=== PATIENT | male | born 1950 | race Caucasian/White ===

== ENCOUNTER → 2017-10-16 | Day surgery (SDC) | payer MEDICARE ==
[2017-10-14 08:28] LABS: BASOPHILS % 0.3 % (0.0-1.0); EOSINOPHILS # (AUTO) 0.1 (0.0-0.4); EOSINOPHILS % 1.1 % (0.0-6.0); HEMATOCRIT 43.5 % (38.2-49.6); HEMOGLOBIN 14.6 g/dL (14.0-18.0); LYMPHOCYTES # (AUTO) 1.7 (1.0-3.2); LYMPHOCYTES % 27.7 % (18.0-39.1); MEAN CORPUSCULAR HEMOGLOBIN 32.4 pg (28-32); MEAN CORPUSCULAR HGB CONC 33.6 g/dL (31-35); MEAN CORPUSCULAR VOLUME 96.7 fL (81-99); MONOCYTES # (AUTO) 0.7 (0.2-0.8); MONOCYTES % 10.8 % (4.4-11.3); NEUTROPHILS # (AUTO) 3.7 (2.1-6.9); NEUTROPHILS % 59.9 % (38.7-80.0); PLATELET COUNT 173 x10e3/uL (140-360); RED CELL DISTRIBUTION WIDTH 12.6 % (11.7-14.4)
[2017-10-14 08:50] LABS: ALANINE AMINOTRANSFERASE 13 IU/L (0-55); ALBUMIN/GLOBULIN RATIO 1.2 (0.8-2.0); ALKALINE PHOSPHATASE 60 IU/L (40-150); ANION GAP 13.2 mmol/L (8-16); BLOOD UREA NITROGEN 15 mg/dL (7-26); BUN/CREATININE RATIO 15 (6-25); CALCIUM 10.1 mg/dL (8.4-10.2); CARBON DIOXIDE 26 mmol/L (22-29); CHLORIDE 110 mmol/L (98-107); CREATININE, SERUM 0.98 mg/dL (0.72-1.25); EST GLOMERULAR FILTRATION RATE > 60 ML/MIN (60-); GLUCOSE 97 mg/dL (74-118); POTASSIUM 5.2 mmol/L (3.5-5.1); SODIUM 144 mmol/L (136-145)
--- NOTE | 2017-10-14 09:19 | Diagnostic Imaging Report ---
PROCEDURE: X-RAY CHEST, TWO VIEWS COMPARISON: None. INDICATIONS: PRE OPERATIVE CHEST X-RAY FOR STONES FINDINGS: LUNGS: No consolidations or edema. PLEURA: No effusions or pneumothorax. HEART \T\ MEDIASTINUM: The heart is within normal size-limits. BONES \T\ SOFT TISSUES: No acute findings. Degenerative changes of the spine. CONCLUSION: No acute thoracic abnormality. Sergo Jones D.O. Dictated by: Sergo Jones D.O. on 10/14/2017 at 9:23 Electronically approved by: Sergo Jones D.O. on 10/14/2017 at 9:23
[~2017-10-16] MED LIST: BELLADONNA/OPIUM 30 MG SUPP RC ONE; CEFTRIAXONE SOD 1 GM VIAL ONE; DEXAMETHASONE SOD PHOS INJ 4 MG/ML VIAL ONE; FENTANYL CITRATE/PF 100MCG/2 ML INJ ONE; FLOMAX0.4 MG PO; IOPAMIDOL 610MG/1ML 300 MG/ML VIAL IV ONE; LIDOCAINE HCL 2% LOCAL INJ 5 ML SDV VIAL INJ ONE; METOCLOPRAMIDE HCL 10 MG/2ML VIAL ONE; MIDAZOLAM HCL 2 MG/2 ML VIAL ONE; ONDANSETRON HCL INJ 2 MG/ML VIAL ONE; PANTOPRAZOLE PO; PROPOFOL IV EMULSION 10 MG/ML 20 ML VIAL ONE; RANITIDINE PO; SEVOFLURANE INHAL SOLN 250 ML PEN BTL ONE
--- NOTE | 2017-10-16 08:13 | Diagnostic Imaging Report ---
PROCEDURE:X-RAY ABDOMEN - KUB COMPARISON:None. INDICATIONS:PREOPERATIVE XRAY FOR KIDNEY STONE SURGERY FINDINGS: Adjacent 5 and 6 mm calcifications project over the lower pole of the left renal shadow. No additional calcifications project over the renal shadows or expected ureteral courses. Multiple right sided pelvic phleboliths. Bowel gas pattern is nonobstructive. Regional skeletal structures are intact. CONCLUSION: Suspected 5 and 6 mm left lower pole renal calculi. Dictated by: Db Devlin M.D. on 10/16/2017 at 8:17 Electronically approved by: Db Devlin M.D. on 10/16/2017 at 8:17
--- NOTE | 2017-11-30 04:22 | Operative Report ---
DATE OF PROCEDURE: October 16, 2017 PREOPERATIVE DIAGNOSES 1. Right nephrolithiasis. 2. Right ureterolithiasis. 3. Renal colic. 4. Hydronephrosis due to stone. POSTOPERATIVE DIAGNOSES 1. Right nephrolithiasis. 2. Right ureterolithiasis. 3. Renal colic. 4. Hydronephrosis due to stone. OPERATIONS PERFORMED: Note, these were all staged procedures as part of a multistage, multistep process of managing patient's urolithiasis. 1. Right extracorporeal shockwave lithotripsy (separate procedure performed to lithotripsy the 4-mm mid caliceal stone located in the right-hand side). 2. Cystourethroscopy with bilateral ureteral catheterization and retrograde ureteropyelography. (separate procedure performed for the renal colic). 3. Interpretation of retrograde ureteropyelography. 4. Supervision of fluoroscopy (no radiologist present). 5. Right ureteroscopy with stone manipulation and extraction (separate procedure performed for right ureterolithiasis). 6. Urological services for supervision and interpretation of ureteroscopy. 7. Cystourethroscopy with insertion of right indwelling ureteral stent (separate procedure performed for the diagnosis of the hydronephrosis). ANESTHESIA: General. COMPLICATIONS: None. CLINICAL SUMMARY: Marvin Sands is a 67-year-old man with right nephrolithiasis. He was brought for the above procedures. He is aware of the risks of bleeding, infection, injury to adjacent structures, need for additional procedures, and elected to proceed. He also has some pains; therefore, we plan to evaluate his pains with cystoscopy and retrograde. OPERATIVE PROCEDURE IN DETAIL: Informed consent verified. Marvin Sands was properly identified, taken to the operating room, placed on the lithotripsy table in supine position. Anesthesia was uneventfully begun. The patient's right nephrolithiasis was localized with biplanar fluoroscopy. A total of 3000 shocks were delivered with fragmentation noted. Patient was then carefully and gently repositioned in the dorsal lithotomy position with all pressure points well padded. His genitalia were prepared and draped in usual sterile fashion. The 22.5-Moldovan cystoscope sheath with visual obturator in place was atraumatically inserted per patient's urethra. It was guided down the unremarkable distal urethra through the normal sphincteric region through the prostate bed, was significant for bilobar prostatic hypertrophy with visual obstruction. Panendoscopy of urinary bladder revealed mild trabeculations, but no tumors, no stones, no true diverticula. Normally positioned and configured ureteral orifices were identified. The ureteral catheter was used to cannulate each ureter and retrograde ureteropyelography was performed. A guidewire was then placed into the right ureter and guided to level of patient's kidney. Semirigid ureteroscopy was then performed. The ureteroscope was inserted under direct vision, guided alongside the guidewire up into the right ureter. We identified a stone. The stone was grasped with a basket and atraumatically extracted. With cystoscopic fluoroscopic guidance, a right-sided indwelling ureteral stent was then placed. It was coiled in patient's kidney, as well as patient's bladder. The retaining suture was cut short. Interpretation of retrograde ureteropyelography: Contrast was instilled in retrograde fashion bilaterally. The left side was unremarkable. There were no tumors. There were no diverticula. Unobstructed drainage was observed. The right side was significant for hydroureteronephrosis down to the level of patient's ureteral stone. The stent was in good position, coiled in patient's kidney, as well as patient's bladder. At the end of the case, there were filling defects in the midpole gildardo corresponding to the region where we performed lithotripsy. The patient's bladder was drained. Cystoscope was withdrawn. A belladonna and opium suppository was placed revealing a 40-g prostate that was smooth, nonfluctuant without any nodules. The patient was then uneventfully reversed from anesthesia and taken to recovery room in stable condition. There were no complications to the procedure. He tolerated the procedure well. Explicit postop instructions were given. Will follow the patient up by returning him to the operating room to perform cystoscopy, removal of his right stent, right ureteroscopy. Job#: [id number] CQ
== END | disposition home or self-care (01) ==
LOC: OR 07:17
PROVIDERS: ATTEND Urology
DX: N13.2 Hydronephrosis with renal and ureteral calculous obstruction (principal); N32.89 Other specified disorders of bladder; N40.1 Benign prostatic hyperplasia with lower urinary tract symptoms; R35.1 Nocturia; N50.0 Atrophy of testis; K21.9 Gastro-esophageal reflux disease without esophagitis; Z01.810 Encounter for preprocedural cardiovascular examination; Z01.812 Encounter for preprocedural laboratory examination; Z01.818 Encounter for other preprocedural examination; Z84.1 Family history of disorders of kidney and ureter
CPT/HCPCS: 36415; 50590; 52332; 71046; 74018; 80053; 83970; 84550; 85025; 88300; 93005; C1758; C2617; J0696; J1100; J2001; J2250; J2405; J2765; Q9967

== ENCOUNTER → 2017-11-18 | Outpatient (CLI) | payer MEDICARE ==
[~2017-11-18] MED LIST changes: -BELLADONNA/OPIUM 30 MG SUPP RC ONE; -CEFTRIAXONE SOD 1 GM VIAL ONE; -DEXAMETHASONE SOD PHOS INJ 4 MG/ML VIAL ONE; -FENTANYL CITRATE/PF 100MCG/2 ML INJ ONE; -IOPAMIDOL 610MG/1ML 300 MG/ML VIAL IV ONE; -LIDOCAINE HCL 2% LOCAL INJ 5 ML SDV VIAL INJ ONE; -METOCLOPRAMIDE HCL 10 MG/2ML VIAL ONE; -MIDAZOLAM HCL 2 MG/2 ML VIAL ONE; -ONDANSETRON HCL INJ 2 MG/ML VIAL ONE; -PROPOFOL IV EMULSION 10 MG/ML 20 ML VIAL ONE; -SEVOFLURANE INHAL SOLN 250 ML PEN BTL ONE
--- NOTE | 2017-11-18 11:02 | Diagnostic Imaging Report ---
PROCEDURE:X-RAY ABDOMEN - KUB COMPARISON:[facility], DX, ABDOMEN-1VIEW (KUB), 10/16/2017, 7:52. INDICATIONS:CALCULUS OF KIDNEY FINDINGS: There is a right double-J ureteral stent present. Stones previously described overlying the left lower pole are not conclusively visualized due to overlying bowel gas. There are no dilated loops of bowel to suggest obstruction. There are no masses or abnormal calcifications. Right pelvic calcifications appear to represent phleboliths. There is no evidence of free air. No acute osseous abnormalities are present. CONCLUSION: No acute abdominal abnormality. Sergo Jones D.O. Dictated by: Sergo Jones D.O. on 11/18/2017 at 11:07 Electronically approved by: Sergo Jones D.O. on 11/18/2017 at 11:07
== END ==
LOC: RAD 07:42
PROVIDERS: ATTEND Urology
DX: N20.0 Calculus of kidney (principal)
CPT/HCPCS: 74018

== ENCOUNTER → 2017-11-27 | Day surgery (SDC) | payer MEDICARE ==
[2017-11-25 14:16] LABS: BASOPHILS % 0.3 % (0.0-1.0); EOSINOPHILS % 0.5 % (0.0-6.0); HEMATOCRIT 42.2 % (38.2-49.6); HEMOGLOBIN 14.3 g/dL (14.0-18.0); LYMPHOCYTES # (AUTO) 1.5 (1.0-3.2); LYMPHOCYTES % 25.1 % (18.0-39.1); MEAN CORPUSCULAR HEMOGLOBIN 32.8 pg (28-32); MEAN CORPUSCULAR HGB CONC 33.9 g/dL (31-35); MEAN CORPUSCULAR VOLUME 96.8 fL (81-99); MONOCYTES # (AUTO) 0.5 (0.2-0.8); MONOCYTES % 8.5 % (4.4-11.3); NEUTROPHILS % 65.4 % (38.7-80.0); PLATELET COUNT 185 x10e3/uL (140-360); RED BLOOD COUNT 4.36 x10e6/uL (4.3-5.7); RED CELL DISTRIBUTION WIDTH 12.6 % (11.7-14.4)
[~2017-11-27] MED LIST changes: +CEFTRIAXONE SOD 1 GM VIAL ONE; +DESFLURANE 240 ML BTL INH ONE; +DEXAMETHASONE SOD PHOS INJ 4 MG/ML VIAL ONE; +EYE LUBRICANT OPTH OINT 3.5GM TUBE OP ONE; +FENTANYL CITRATE/PF 100MCG/2 ML INJ ONE; +IOPAMIDOL 300MG/ML 50ML INFUS..BTL IV ONE; +LIDOCAINE HCL 2% LOCAL INJ 5 ML SDV VIAL INJ ONE; +MIDAZOLAM HCL 2 MG/2 ML VIAL ONE; +ONDANSETRON HCL INJ 2 MG/ML VIAL ONE; +PROPOFOL IV EMULSION 10 MG/ML 20 ML VIAL ONE
--- NOTE | 2017-11-27 12:41 | Diagnostic Imaging Report ---
Exam: Abdominal film Clinical History: Stent, stones preop surgery for kidney stone Comparison: KUB DISCUSSION: Frontal view of the abdomen shows a nonobstructive bowel gas pattern with mild amount of retained stool.There are no dilated, air-filled loops of bowel. Stable right double-J internal ureteral stent in place. 3-4 mm radiopaque density projects over the inferior aspect of the right renal shadow. No calcifications project over the left renal shadow, expected course of the ureters or bladder. Stable pelvic phleboliths. No acute bony abnormalities. IMPRESSION: 1. Stable right double-J internal ureteral stent in place. 2. 3-4 mm radiopaque density projecting in the lower pole of the right renal shadow likely represents a nonobstructing calculus. The staff physician below has personally reviewed this exam on the date of dictation. Signed by: Dr. Les Jean-Baptiste M.D. on 11/27/2017 12:37 PM
--- NOTE | 2018-01-19 14:58 | Operative Report ---
DATE OF PROCEDURE: November 27, 2017 PREOPERATIVE DIAGNOSES: 1. Right nephrolithiasis. 2. Right indwelling ureteral stent. POSTOPERATIVE DIAGNOSES: 1. Right nephrolithiasis. 1. Right indwelling ureteral stent. PROCEDURES PERFORMED: Note: These are all staged procedures as part of a multistage, multistep process of managing the patient's urolithiasis. 1. Cystourethroscopy with complicated removal of right indwelling ureteral stent (separate procedure performed for the diagnosis of stent, done with separate scope). 2. Right ureteroscopy with Holmium laser lithotripsy and stone extraction (separate procedure performed for the nephrolithiasis, done with separate scope.) 3. Radiological services for supervision and interpretation of ureteroscopy. 4. Interpretation of retrograde ureterography. 5. Supervision of fluoroscopy. No radiologist present. ANESTHESIA: General. COMPLICATIONS: None. CLINICAL SUMMARY: Marvin Sands is a 67-year-old man who underwent previous stone management. He has a stent in place. He is brought to the operating room in hopes of rendering him stent-free and stone-free. He is aware of the risks of bleeding, infection, injury to adjacent structures, need for additional procedures and elected to proceed. OPERATIVE PROCEDURE IN DETAIL: Informed consent was verified. Marvin Sands was properly identified, taken to the operating room and placed on the cystoscopy table in supine position, and anesthesia was uneventfully begun. The patient was then carefully and gently repositioned in the dorsal lithotomy position with all pressure points well padded. His genitalia were prepared and draped in the usual sterile fashion. The 22.5-Macedonian cystoscope sheath with the visual obturator in place was atraumatically inserted in the patient's urethra. It was guided down the unremarkable urethra past a prostatic bed that was significant for obstructive BPH with kissing lateral lobes. No median lobe was noted. We entered the patient's bladder where there was a stent emerging from the right ureteral orifice. A guidewire was then placed alongside the stent and guided to the level of the patient's kidney. The stent was then grasped, completely removed and discarded. A semi-rigid ureteroscope was then placed alongside the guidewire and guided into the distal right ureter. No stones were noted, and there was no injury, there were no tumors in the part that was visualized. A secondary guidewire was left in place. The flexile ureteroscope was then brought up over the guidewire and guided to the level of the patient's kidney. Panendoscopy revealed Tim's plaques. It also revealed a stone within the kidney. This stone was lasered to break it up into smaller fragments, and the largest of the fragments were extracted with a Nitinol tipless basket. Only very fine sand remained. This sand should be passable. The ureter was examined as we exited and exhibited no residual stones and no strictures and no tumors. The patient's bladder was then drained. The cystoscope was withdrawn. The direct examination revealed a 40 g prostate that was smooth, nonflexible and without any nodules, and the patient was uneventfully reversed from anesthesia and taken to the recovery room in stable condition. There were no complications of the procedure. He tolerated the procedure well. Plans will be to follow the patient up at the office, at which point in time we will assess his BPH with uroflowmetry and bladder ultrasonography. Interpretation of retrograde ureteropyelography: Contrast was instilled in a retrograde fashion on the right-hand side. There were no tumors present. There was mild fullness noted. The ureter was unremarkable. Unobstructed drainage was observed fluoroscopically. Job#: [id number] EV cc:PAUL JACOBS MD
== END | disposition home or self-care (01) ==
LOC: OR 11:30
PROVIDERS: ATTEND Urology
DX: N20.0 Calculus of kidney (principal); Z46.6 Encounter for fitting and adjustment of urinary device; N40.1 Benign prostatic hyperplasia with lower urinary tract symptoms; N13.8 Other obstructive and reflux uropathy; N28.89 Other specified disorders of kidney and ureter; K21.9 Gastro-esophageal reflux disease without esophagitis; I44.0 Atrioventricular block, first degree; Z01.812 Encounter for preprocedural laboratory examination
CPT/HCPCS: 36415; 52353; 74420; 85025; 88300; J0696; J1100; J2001; J2250; J2405; Q9967; 74018